=== PATIENT | male | born 1950 | race Asian ===

== ENCOUNTER 2019-03-29 22:13 | Emergency (ER) | payer SELFPAY ==
--- NOTE | 2019-03-30 00:34 | Emergency Room Report ---
History of Present Illness General Source: Patient Present Illness HPI This is a 69-year-old male with unknown past medical history. He presents with chief complaint of weakness. He was brought in by EMS on the street. He has multiple hospital ID bands on him. There is no trauma. No chest pain. Patient was in the waiting room and left without telling nursing staff. I do not see this patient. Patient History Past Medical History: see triage record, old chart reviewed Past Surgical History: none Pertinent Family History: none Social History: Denies: smoking Immunizations: other Reviewed Nursing Documentation: PMH: Agreed; PSxH: Agreed Medical Decision Making Diagnostic Impression: Primary Impression: Weakness Disposition: LEFT W/OUT BEING SEEN Condition: Stable Referrals: NOT CHOSEN IPA/,REFERRING (PCP) Sagar Vann MD Mar 30, 2019 00:34
== END 2019-03-29 23:49 | disposition left against medical advice (07) ==
LOC: EDBD 22:13 → EMR 23:49
DX: Z53.21 Procedure and treatment not carried out due to patient leaving prior to being seen by health care provider (principal)